=== PATIENT | male | born 1980 | race Caucasian/White ===

== ENCOUNTER 2016-11-15 19:52 | Emergency (ER) | payer BC ==
[2016-11-15 20:02] VITALS: BP 126/75
--- OUTSIDE RECORDS SUMMARY | 2016-11-15 20:11 | XMS REPORT | Continuity of Care Document ---
:1980 Author Organization [facility] [place] [address] Care Team Providers Name Role Phone Arnav Prater Primary Care Provider [phone] Source Comments This disclosure is being made pursuant to the [employer] program and maynot contain all information available regarding this patient.[facility] Active Allergies and Adverse Reactions Allergen Noted Date Severity Reactions Comments Sulfa Antibiotics 10/30/2016 High Swelling Current Medications Be aware that medications may not be up to date as of this document. Alwaysverify current medications with the patient. Prescription Sig. Disp. Refills Start Date End Date Status phentermine 37.5 MG Take 1 capsule 30 capsule 0 11/04/2016 Active capsule (37.5 mg total) by mouth every morning. amoxicillin (AMOXIL) Take 1 capsule 20 capsule 0 11/04/2016 11/14/2016 500 MG capsule by mouth 2 (two) times daily. Active Problems Problem Noted Date URI (upper respiratory infection) 11/04/2016 Most Recent Encounters Date Type Specialty Providers Description 11/04/2016 Office Visit Family Medicine Arnav Prater MD Tooth pain ( Primary Dx); Weight reduction; Ear pain, bilateral 10/30/2016 Abstract Family Medicine Carol Rider CMA Social History Tobacco Use Types Packs/Day Years Used Date Current Every Day Smoker Smokeless Tobacco: Never Used Alcohol Use Drinks/Week oz/Week Comments No Last Filed Vital Signs Vital Sign Reading Time Taken Blood Pressure 113/79 11/04/2016 3:22 PM CDT Pulse 85 11/04/2016 3:22 PM CDT Temperature 36.4 C (97.5 F) 11/04/2016 3:22 PM CDT Respiratory Rate 16 11/04/2016 3:22 PM CDT Height 1.778 m (5' 10") 11/04/2016 3:22 PM CDT Weight 87.726 kg (193 lb 6.4 oz) 11/04/2016 3:22 PM CDT Body Mass Index 27.75 11/04/2016 3:22 PM CDT Oxygen Saturation 100% 11/04/2016 3:22 PM CDT Plan of Care Health Maintenance Due Date Last Done Comments Pneumococcal Medium Risk 19-64 yo (1 of 1 - PPSV23) 2000 Tetanus/Pertussis (1 - Tdap) 2000 Influenza Immunization (#1) 2016 Results from Last 3 Months Not on file
--- NOTE | 2016-11-15 20:31 | ERNOTE ---
ENT HPI Time Seen by Provider: 11/15/16 19:57 Source: patient Exam Limitations: no limitations - Immun/Allergies/Home Medications Immunizations: IMMUNIZATION HX Immunizations Up to Date Yes History of Influenza Vaccine No Hx Pneumococcal Vaccination No Allergies/Adverse Reactions: Allergies Allergy/AdvReac Type Severity Reaction Status Date / Time Sulfa (Sulfonamide Allergy Severe edema Verified 11/15/16 20:02 Antibiotics) [Sulfa(Sulfonamide Antibiotics)] Home Medications: HOME MEDICATIONS Amoxicillin 11/15/16 [Last Taken Unknown] - History of Present Illness Narrative: Patient had two teeth extracted two days ago. Yesterday the bottom tooth started to bleed, he saw his dentist and had surgicell placed as he had a dry socket. the oozing started again this morning and he saw his dentist again this afternoon, who removed the surgicell at that time. Since then the bleeding has gotten worse and it is the beginning of a three day weekend so he came to the ER for treatment. He denies any other bleeding, is not on any blood thinner, but has been taking a lot of ibuprofen prior to the tooth extraction Review of Systems - Review of Systems Constitutional: Absent: recent illness, fever ENT: Absent: sore throat Respiratory: Absent: shortness of breath, cough Cardiology: Absent: chest pain Gastrointestinal/Abdominal: Absent: nausea, vomiting, abdominal pain Genitourinary: Present: no symptoms reported Musculoskeletal: Present: no symptoms reported Skin: Present: no symptoms reported Neurological: Absent: headache Hematologic/Lymphatic: Absent: easy bruising, easy bleeding - Patient's Past Medical History Patient History - Medical: No pertinent hx Patient History - Cardiac/Respiratory: No pertinent hx Patient History - Cancer: No Hx of Cancer Patient History - Surgical Procedures: Other - Social History Living Situations: home Abuse History: Hx of Substance Use Smoking Status: Current every day smoker Drug Use: meth - Immunizations Immunizations Up to Date: Yes Hx Pneumococcal Vaccination: No History of Influenza Vaccine: No Physical Exam - Physical Exam General Appearance: Present: wd/wn, alert, no apparent distress Ears, Nose, Throat: Present: other - right lower jaw, last molar has a dry socket and is oozing blood, no other source of bleeding, no swelling Respiratory: Present: no respiratory distress, normal breath sounds, lungs clear Cardiovascular/Chest: Present: regular rate, rhythm, no murmur Neurological Exam: Present: alert, oriented, normal mood/affect Skin Exam: Present: normal color, warm/dry ED Progress - Vital Signs Patient's Vital Signs:: I have reviewed the patient's vital signs. Vital Signs: Vital Signs 11/15/16 19:56 Temperature 36.6 C Pulse Rate 98 Respiratory 14 Rate Blood Pressure 126/75 O2 Sat by Pulse 95 Oximetry - Progress/Reassessment Chief Complaint: Dental Problem Progress Note-Subjective: 11/15/16 20:13 put a piece of surgicell in extraction wound Departure Clinical Impression: Dry tooth socket - Departure Disposition: Home self-care Condition: Good Instructions: Dental Extraction, Care After, [id number] Additional Instructions: follow up with your dentist after the weekend Referrals: Arnav Prater MD [Primary Care Provider] -
== END 2016-11-15 20:12 | disposition home or self-care (01) ==
LOC: ER 19:52
DX: M27.3 Alveolitis of jaws (principal); Z72.0 Tobacco use